=== PATIENT | male | born 1965 | race Caucasian/White ===

== ENCOUNTER 2018-10-17 16:01 | Inpatient (IN) | payer OTHER ==
[2018-10-17 22:10] VITALS: BMI 34.7
--- NOTE | 2018-10-18 00:43 | HP ---
COWS - Scale Resting Pulse: 1= [place] 81-100 Sweatin=Flushed/Facial Moisture Restless Observation: 1= Difficult to Sit Still Pupil Size: 1= Pupils >than Normal Bone or Joint Aches: 4=Acute Joint/Muscle Pain Runny Nose/ Eye Tearin= Nasal Congestion GI Upset > 30mins: 1= Stomach Cramp Tremor Observation: 2= Slight Tremor Visible Yawning Observation: 0= None Anxiety or Irritability: 2=Irritable/Anxious Goose Flesh Skin: 0=Smooth Skin COWS Score: 15 CIWA Score - Admission Criteria OASAS Guidelines: Admission for Medically Managed Detox: Requires at least one of the followin. CIWA greater than 12 2. Seizures within the past 24 hours 3. Delirium tremens within the past 24 hours 4. Hallucinations within the past 24 hours 5. Acute intervention needed for co occurring medical disorder 6. Acute intervention needed for co occurring psychiatric disorder 7. Severe withdrawal that cannot be handled at a lower level of care (continued vomiting, continued diarrhea, abnormal vital signs) requiring intravenous medication and/or fluids 8. Admission ROS [facility] - [facility] Chief Complaint: +Heroin withdrawal symptoms Allergies/Adverse Reactions: Allergies Allergy/AdvReac Type Severity Reaction Status Date / Time No Known Allergies Allergy Verified 10/17/18 23:47 History of Present Illness: 53 years old male with about 25 years of heroin dependence is seeking admission to detox. Patient was in detox at [facility] in 1992 and reports 10 years of sobriety. He has medical history of asthma, DM Type 1 and hypertension. He denies suicide attempt and suicidal ideation at this time. Exam Limitations: No Limitations - Ebola screening Have you traveled outside of the country in the last 21 days: No Have you had contact with anyone from an Ebola affected area: No Have you been sick,other than usual withdrawal symptoms: No Do you have a fever: No - Review of Systems Constitutional: Chills, Night Sweats, Changes in sleep EENT: reports: No Symptoms Reported Respiratory: reports: No Symptoms reported Cardiac: reports: No Symptoms Reported GI: reports: Poor Appetite, Poor Fluid Intake, Vomiting, Abdominal cramping : reports: No Symptoms Reported Musculoskeletal: reports: Back Pain, Joint Pain Integumentary: reports: Dryness Neuro: reports: Headache, Tremors Endocrine: reports: No Symptoms Reported Hematology: reports: No Symptoms Reported Psychiatric: reports: Agitated, Depressed Other Systems: Reviewed and Negative Patient History - Patient Medical History Hx Anemia: No Hx Asthma: No Hx Chronic Obstructive Pulmonary Disease (COPD): No Hx Cancer: No Hx Cardiac Disorders: No Hx Congestive Heart Failure: No Hx Hypertension: Yes (Not on medication ) Hx Hypercholesterolemia: No Hx Pacemaker: No HX Cerebrovascular Accident: No Hx Seizures: No Hx Dementia: No Hx Diabetes: Yes (In sulin ) Hx Gastrointestinal Disorders: No Hx Liver Disease: No Hx Genitourinary Disorders: No Hx Sexually Transmitted Disorders: No Hx Renal Disease (ESRD): No Hx Human Immunodeficiency Virus (HIV): No (Negative 2018) Hx Hepatitis C: No Hx Depression: No ( ) Hx Suicide Attempt: No (Denies suic idal ideation at this time) Hx Bipolar Disorder: No Hx Schizophrenia: No - Patient Surgical History Past Surgical History: No Hx Neurologic Surgery: No Hx Cataract Extraction: No Hx Cardiac Surgery: No Hx Lung Surgery: No Hx Breast Surgery: No Hx Breast Biopsy: No Hx Abdominal Surgery: No Hx Appendectomy: No Hx Cholecystectomy: No Hx Genitourinary Surgery: No Hx Section: No Hx Orthopedic Surgery: No Anesthesia Reaction: No - PPD History Previous Implant?: Yes Documented Results: Negative w/o proof Implanted On Prior R Admission?: No PPD to be Administered?: Yes - Reproductive History Patient is a Female of Child Bearing Age (11 -55 yrs old): No (MALE) - Smoking Cessation Smoking history: Current every day smoker Have you smoked in the past 12 months: Yes Aproximately how many cigarettes per day: 5 Hx Chewing Tobacco Use: No Initiated information on smoking cessation: Yes 'Breaking Loose' booklet given: 10/18/18 - Substance & Tx. History Hx Alcohol Use: No Hx Substance Use: Yes Substance Use Type: Heroin Hx Substance Use Treatment: No - Substances Abused Heroin Route: Inhalation Frequency: Daily Amount used: 20 BAGS Age of first use: 22 Date of Last Use: 10/17/18 Family Disease History - Family Disease History Family History: Denies Admission Physical Exam BHS - Vital Signs Vital Signs: Vital Signs - 24 hr 10/17/18 22:09 Temperature 97.7 F Pulse Rate 90 Respiratory 18 Rate Blood Pressure 150/93 - Physical General Appearance: Yes: Moderate Distress, Tremorous, Sweating, Anxious HEENTM: Yes: EOMI, Normal ENT Inspection, Normal Voice, ZOE Respiratory: Yes: Lungs Clear, Normal Breath Sounds, No Respiratory Distress Neck: Yes: Supple Breast: Yes: Breast Exam Deferred Cardiology: Yes: Regular Rhythm, Regular Rate, Tachycardia Abdominal: Yes: Normal Bowel Sounds Genitourinary: Yes: Within Normal Limits Back: Yes: Normal Inspection Musculoskeletal: Yes: Back pain, Muscle Pain Extremities: Yes: Tremors 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, Alert, Normal Mood/Affect Integumentary: Yes: Warm Lymphatic: Yes: Within Normal Limits - Diagnostic (1) DM type 1 (diabetes mellitus, type 1) Current Visit: Yes Status: Chronic Qualifiers: Diabetes mellitus complication status: without complication Qualified Code( s): E10.9 - Type 1 diabetes mellitus without complications (2) Hypertension Current Visit: Yes Status: Acute (3) Nicotine dependence Current Visit: Yes Status: Acute (4) Opioid dependence with withdrawal Current Visit: Yes Status: Acute (5) Asthma attack Current Visit: Yes Status: Acute Qualifiers: Asthma severity: mild Asthma persistence: unspecified Qualified Code(s): J45.901 - Unspecified asthma with (acute) exacerbation Cleared for Admission [facility] - Detox or Rehab [facility] Level of Care: Medically Managed Detox Regimen/Protocol: Methadone [facility] Breath Alcohol Content Breath Alcohol Content: 0 Urine Drug Screen - Results Drug Screen Negative: No Urine Drug Screen Results: OPI-Opiates, MTD-Methadone, OXY-Oxycodone
[2018-10-18] MEDS ORDERED: guaiFENesin/D-METHORPHAN HB 10 ML UNIT-DOSE CUPS PO PRN (00:50)
[2018-10-18] MEDS ORDERED: NICOTINE POLACRILEX 4 MG GUM BC PRN (00:50)
[2018-10-18] MEDS ORDERED: LOPERAMIDE HCL 2 MG CAPSULE PO PRN (00:50)
[2018-10-18] MEDS ORDERED: MAGNESIUM CITRATE 300 ML BOTTLE PO PRN (00:50)
[2018-10-18] MEDS ORDERED: MAG HYDROX/AL HYDROX/SIMETH 30 ML UNIT-DOSE CUP PO PRN (00:50)
[2018-10-18] MEDS ORDERED: NICOTINE POLACRILEX 2 MG GUM BC PRN (00:50)
[2018-10-18] MEDS ORDERED: METHADONE HCL 10 MG TABLET (FOR DETOX USE ONLY) PO ONE ×3 (00:50→23:00)
[2018-10-18] MEDS ORDERED: MAGNESIUM HYDROX 2400MG/30ML ORAL SUSPENSION 30 ML CUP PO PRN (00:50)
[2018-10-18] MEDS ORDERED: MENTHOL/PHENOL 1 EACH UD MM PRN (00:50)
[2018-10-18] MEDS ORDERED: IBUPROFEN 400 MG TABLET (FP) PO PRN (00:50)
[2018-10-18] MEDS ORDERED: ACETAMINOPHEN 325 MG TABLET (FP) PO PRN (00:50)
[2018-10-18] MEDS ORDERED: P-EPHED 60MG/TRIPROLIDI 2.5MG TABLET PO PRN (00:50)
[2018-10-18] MEDS: diazePAM 5 MG TABLET PO PRN ×2 (01:51→22:12)
[2018-10-18] MEDS: INSULIN SLIDING SCALE (NOVOLOG) 1 VIAL SQ SCH ×5 (06:07→23:41)
[2018-10-18] MEDS ORDERED: ALBUTEROL SO4 8 GM HFA INHALER IH PRN (10:00)
--- NOTE | 2018-10-18 10:00 | PN ---
[facility] Progress Note Note: PATIENT ADMITTED EARLY THIS MORNING FOR HEROIN WITHDRAWAL SYMPTOMS. PATIENT C/O CHILLS, ANXIETY, SLEEP DISTURBANCE AND IRRITABILITY. Vital Signs Temperature 96.6 F L 10/18/18 09:21 Pulse Rate 74 10/18/18 09:21 Respiratory Rate 17 10/18/18 09:21 Blood Pressure 121/63 10/18/18 09:21 O2 Sat by Pulse Oximetry (%) Laboratory Tests 10/18/18 06:29 POC Glucometer 209 PE: ALERT AND ORIENTED X 3 COVERED FACE WITH BLANKET DURING EXAM STATING "I WANT TO SLEEP" EXT FULL ROM, NO VISIBLE EDEMA ANXIOUS AND IRRITABLE EXAM LIMITED DUE TO IRRITABILITY A/P WITHDRAWAL SX CONTINUE DETOX ENCOURAGE ORAL FLUIDS CONTINUE TO MONITOR
[2018-10-18] MEDS: PRENATAL VITAMINS W/ FOLIC ACID TABLET (FP) PO SCH (10:43)
[2018-10-18] MEDS: NICOTINE 14 MG/24 HOURS TOPICAL PATCH TD SCH (10:44)
[2018-10-18] MEDS: BUDESONIDE/FORMETEROL FUMARATE 80/4.5 mcg INHALER IH SCH ×2 (10:44→23:41)
[2018-10-18 15:25] LABS: URINE APPEARANCE CLEAR; URINE BILIRUBIN NEGATIVE (<2.0 mg/dL); URINE COLOR STRAW; URINE GLUCOSE (UA) 1+ (NEGATIVE); URINE KETONE NEGATIVE (NEGATIVE); URINE LEUK ESTERASE NEGATIVE (NEGATIVE); URINE NITRITE NEGATIVE (NEGATIVE); URINE PROTEIN NEGATIVE (NEGATIVE); URINE UROBILINOGEN NEGATIVE mg/dL (0.2-1.0)
[2018-10-18] MEDS ORDERED: MELATONIN 5 MG TABLETS PO PRN (22:00)
[2018-10-18] MEDS: THIAMINE HCL 100 MG TABLET (FP) PO SCH (22:12)
[2018-10-19] MEDS ORDERED: ONDANSETRON *ODT* 4 MG TABLET SL ONE (02:37)
[2018-10-19] MEDS: INSULIN SLIDING SCALE (NOVOLOG) 1 VIAL SQ SCH ×4 (08:07→23:12)
[2018-10-19] MEDS ORDERED: METHADONE HCL 10 MG TABLET (FOR DETOX USE ONLY) PO ONE (10:00)
[2018-10-19 10:22] LABS: HEMATOCRIT 40.3 % (35.4-49); HEMOGLOBIN 13.1 GM/dL (11.7-16.9); MCH 31.9 pg (25.7-33.7); MCHC 32.5 g/dl (32.0-35.9); MEAN PLT VOLUME 10.4 fl (7.5-11.1); PLATELET COUNT 106 K/MM3 (134-434); RBC 4.11 M/mm3 (4.00-5.60); WHITE BLOOD COUNT 9.7 K/mm3 (4.0-10.0)
[2018-10-19] MEDS ORDERED: TRIMETHOBENZAMIDE HCL 200MG/2ML INJ IM PRN (10:24)
[2018-10-19] MEDS: BUDESONIDE/FORMETEROL FUMARATE 80/4.5 mcg INHALER IH SCH ×2 (11:46→23:11)
[2018-10-19] MEDS: cloNIDine HCL 0.1 MG TABLET PO PRN ×2 (11:46→19:16)
[2018-10-19] MEDS: NICOTINE 14 MG/24 HOURS TOPICAL PATCH TD SCH (11:46)
[2018-10-19] MEDS: PRENATAL VITAMINS W/ FOLIC ACID TABLET (FP) PO SCH (11:46)
[2018-10-19] MEDS: amLODIPine BESYLATE 5 MG TABLET (FP) PO SCH (11:46)
[2018-10-19 12:02] LABS: ALBUMIN 3.7 g/dl (3.4-5.0); ALK PHOS 110 U/L (45-117); ANION GAP 12 MMOL/L (8-16); BILIRUBIN,TOTAL 0.4 mg/dL (0.2-1); BLOOD UREA NITROGEN 15 mg/dL (7-18); CALCIUM 9.5 mg/dL (8.5-10.1); CHLORIDE 102 mmol/L (98-107); CO2 26 mmol/L (21-32); CREATININE 0.9 mg/dL (0.55-1.3); POTASSIUM 3.8 mmol/L (3.5-5.1); SGOT/AST 21 U/L (15-37); SGPT/ALT 45 U/L (13-61); SODIUM 140 mmol/L (136-145); TOT PROT 7.6 g/dl (6.4-8.2)
[2018-10-19 12:15] LABS: GLUCOSE,RANDOM 322 mg/dL (74-106)
--- NOTE | 2018-10-19 12:41 | PN ---
[facility] COWS - Scale Resting Pulse: 0= [place] 80 or Below Sweatin= Chills/Flushing Restless Observation: 3= Extraneous Movement Pupil Size: 0= Normal to Room Light Bone or Joint Aches: 2= Severe Diffuse Aches Runny Nose/ Eye Tearin= Runny Nose/Eyes GI Upset > 30mins: 3= Vomiting/Diarrhea Tremor Observation of Outstretched Hands: 2= Slight Tremor Visible Yawning Observation: 1= 1-2x During Session Anxiety or Irritability: 2=Irritable/Anxious Goose Flesh Skin: 0=Smooth Skin COWS Score: 16 BHS Progress Note (SOAP) Subjective: Vomited x 3, diarrhea, sweating, tremor, stomach ache, interrupted sleep. Patient reports h/o HTN (not on medication). Objective: 10/19/18 12:36 Last Vital Signs Temp Pulse Resp BP Pulse Ox 97.4 F L 80 18 180/91 H 10/19/18 09:30 10/19/18 09:30 10/19/18 09:30 10/19/18 09:30 Elevated b/p (h/o htn) Laboratory Tests 10/18/18 10/18/18 10/18/18 06:29 11:45 11:46 WBC RBC Hgb Hct MCV MCH MCHC RDW Plt Count MPV Sodium Potassium Chloride Carbon Dioxide Anion Gap BUN Creatinine Creat Clearance w eGFR POC Glucometer 209 289 Random Glucose Calcium Total Bilirubin AST ALT Alkaline Phosphatase Total Protein Albumin Urine Color Straw Urine Appearance Clear Urine pH 7.0 Ur Specific [place] 1.008 L Urine Protein Negative Urine Glucose (UA) 1+ H Urine Ketones Negative Urine Blood Negative Urine Nitrite Negative Urine Bilirubin Negative Urine Urobilinogen Negative Ur Leukocyte Esterase Negative 10/18/18 10/19/18 10/19/18 16:25 07:00 07:00 WBC 9.7 RBC 4.11 Hgb 13.1 Hct 40.3 MCV 98.0 H MCH 31.9 MCHC 32.5 RDW 15.0 Plt Count 106 L MPV 10.4 Sodium 140 Potassium 3.8 Chloride 102 Carbon Dioxide 26 Anion Gap 12 BUN 15 Creatinine 0.9 Creat Clearance w eGFR > 60 POC Glucometer 181 Random Glucose 322 H* Calcium 9.5 Total Bilirubin 0.4 AST 21 ALT 45 Alkaline Phosphatase 110 Total Protein 7.6 Albumin 3.7 Urine Color Urine Appearance Urine pH Ur Specific [place] Urine Protein Urine Glucose (UA) Urine Ketones Urine Blood Urine Nitrite Urine Bilirubin Urine Urobilinogen Ur Leukocyte Esterase 10/19/18 11:44 WBC RBC Hgb Hct MCV MCH MCHC RDW Plt Count MPV Sodium Potassium Chloride Carbon Dioxide Anion Gap BUN Creatinine Creat Clearance w eGFR POC Glucometer 358 Random Glucose Calcium Total Bilirubin AST ALT Alkaline Phosphatase Total Protein Albumin Urine Color Urine Appearance Urine pH Ur Specific [place] Urine Protein Urine Glucose (UA) Urine Ketones Urine Blood Urine Nitrite Urine Bilirubin Urine Urobilinogen Ur Leukocyte Esterase Labs reviewed: increase glucose noted, UA 1+ glucose Assessment: 10/19/18 12:37 Withdrawal symptoms Noted with hyperglycemia and glycosuria H/O HTN Plan: Continue detox Hyperglycemia and glycosuria: secondary to DM; encouraged PO water intake, continue diabetic regimen. Follow up with PCP post discharge for management. HTN, uncontrolled: start norvasc 5mg PO daily, clonidine 0.1mg PO q8hr prn if b/ p >140/90, consider increasing norvasc to 10mg daily if warranted.
[2018-10-19] MEDS: diazePAM 5 MG TABLET PO PRN ×2 (17:59→23:11)
[2018-10-19] MEDS: INSULIN (LEVEMIR) 100 UNITS/ML UNITS SQ SCH (23:04)
[2018-10-19] MEDS: THIAMINE HCL 100 MG TABLET (FP) PO SCH (23:11)
[2018-10-20] MEDS: INSULIN SLIDING SCALE (NOVOLOG) 1 VIAL SQ SCH ×4 (06:17→22:43)
[2018-10-20] MEDS ORDERED: INSULIN SLIDING SCALE (NOVOLOG) 1 VIAL SQ ONE (06:19)
--- NOTE | 2018-10-20 09:39 | PN ---
[facility] COWS - Scale Resting Pulse: 1= [place] 81-100 Sweatin= Chills/Flushing Restless Observation: 1= Difficult to Sit Still Pupil Size: 1= Pupils >than Normal Bone or Joint Aches: 2= Severe Diffuse Aches Runny Nose/ Eye Tearin= Nasal Congestion GI Upset > 30mins: 1= Stomach Cramp Tremor Observation of Outstretched Hands: 1= Tremor [place], Not Seen Yawning Observation: 1= 1-2x During Session Anxiety or Irritability: 2=Irritable/Anxious Goose Flesh Skin: 0=Smooth Skin COWS Score: 12 S Progress Note (SOAP) Subjective: overweight hypertension diabetes copd reported non adherence with medication x 3-4 days body aches joints pain back ache tremor sweat Objective: 10/20/18 10:04 Vital Signs Temperature 97.4 F L 10/20/18 09:25 Pulse Rate 88 10/20/18 09:25 Respiratory Rate 18 10/20/18 09:25 Blood Pressure 179/90 H 10/20/18 09:25 O2 Sat by Pulse Oximetry (%) Laboratory Last Values WBC 9.7 K/mm3 (4.0-10.0) 10/19/18 07:00 RBC 4.11 M/mm3 (4.00-5.60) 10/19/18 07:00 Hgb 13.1 GM/dL (11.7-16.9) 10/19/18 07:00 Hct 40.3 % (35.4-49) 10/19/18 07:00 MCV 98.0 fl (80-96) H 10/19/18 07:00 MCH 31.9 pg (25.7-33.7) 10/19/18 07:00 MCHC 32.5 g/dl (32.0-35.9) 10/19/18 07:00 RDW 15.0 % (11.9-15.9) 10/19/18 07:00 Plt Count 106 K/MM3 (134-434) L 10/19/18 07:00 MPV 10.4 fl (7.5-11.1) 10/19/18 07:00 Sodium 140 mmol/L (136-145) 10/19/18 07:00 Potassium 3.8 mmol/L (3.5-5.1) 10/19/18 07:00 Chloride 102 mmol/L (98-107) 10/19/18 07:00 Carbon Dioxide 26 mmol/L (21-32) 10/19/18 07:00 Anion Gap 12 MMOL/L (8-16) 10/19/18 07:00 BUN 15 mg/dL (7-18) 10/19/18 07:00 Creatinine 0.9 mg/dL (0.55-1.3) 10/19/18 07:00 Creat Clearance w eGFR > 60 (>60) 10/19/18 07:00 POC Glucometer 275 UNITS (80-120) 10/19/18 16:19 Random Glucose 322 mg/dL (74-106) H* 10/19/18 07:00 Calcium 9.5 mg/dL (8.5-10.1) 10/19/18 07:00 Total Bilirubin 0.4 mg/dL (0.2-1) 10/19/18 07:00 AST 21 U/L (15-37) 10/19/18 07:00 ALT 45 U/L (13-61) 10/19/18 07:00 Alkaline Phosphatase 110 U/L (45-117) 10/19/18 07:00 Total Protein 7.6 g/dl (6.4-8.2) 10/19/18 07:00 Albumin 3.7 g/dl (3.4-5.0) 10/19/18 07:00 Urine Color Straw 10/18/18 11:45 Urine Appearance Clear 10/18/18 11:45 Urine pH 7.0 (5.0-8.0) 10/18/18 11:45 Ur Specific [place] 1.008 (1.010-1.035) L 10/18/18 11:45 Urine Protein Negative (NEGATIVE) 10/18/18 11:45 Urine Glucose (UA) 1+ (NEGATIVE) H 10/18/18 11:45 Urine Ketones Negative (NEGATIVE) 10/18/18 11:45 Urine Blood Negative (NEGATIVE) 10/18/18 11:45 Urine Nitrite Negative (NEGATIVE) 10/18/18 11:45 Urine Bilirubin Negative (<2.0 mg/dL) 10/18/18 11:45 Urine Urobilinogen Negative mg/dL (0.2-1.0) 10/18/18 11:45 Ur Leukocyte Esterase Negative (NEGATIVE) 10/18/18 11:45 lab noted discontinue motrim Assessment: 10/20/18 10:05 withdrawal sx encourage weight loss Plan: continue detox encourage weight loss
[2018-10-20] MEDS ORDERED: METHADONE HCL 5 MG TABLET (FOR DETOX USE ONLY) PO ONE (10:00)
[2018-10-20] MEDS ORDERED: amLODIPine BESYLATE 5 MG TABLET (FP) PO ONE (10:24)
[2018-10-20] MEDS ORDERED: LISINOPRIL 20 MG TABLET (FP) PO SCH (10:30)
[2018-10-20] MEDS: diazePAM 5 MG TABLET PO PRN ×3 (10:33→22:50)
[2018-10-20] MEDS: BUDESONIDE/FORMETEROL FUMARATE 80/4.5 mcg INHALER IH SCH ×2 (10:34→22:51)
[2018-10-20] MEDS: PRENATAL VITAMINS W/ FOLIC ACID TABLET (FP) PO SCH (10:34)
[2018-10-20] MEDS: NICOTINE 14 MG/24 HOURS TOPICAL PATCH TD SCH (10:36)
[2018-10-20] MEDS: amLODIPine BESYLATE 5 MG TABLET (FP) PO SCH (10:37)
[2018-10-20] MEDS: LISINOPRIL 20 MG TABLET (FP) PO SCH (10:38)
[2018-10-20] MEDS: cloNIDine HCL 0.1 MG TABLET PO PRN (17:46)
[2018-10-20] MEDS: INSULIN (LEVEMIR) 100 UNITS/ML UNITS SQ SCH (22:43)
[2018-10-20] MEDS: THIAMINE HCL 100 MG TABLET (FP) PO SCH (22:51)
[2018-10-21] MEDS ORDERED: INSULIN SLIDING SCALE (NOVOLOG) 1 VIAL SQ ONE ×2 (05:58→06:02)
[2018-10-21] MEDS: INSULIN SLIDING SCALE (NOVOLOG) 1 VIAL SQ SCH ×4 (06:02→22:02)
[2018-10-21] MEDS: cloNIDine HCL 0.1 MG TABLET PO PRN ×2 (06:08→22:10)
[2018-10-21] MEDS ORDERED: AMMONIUM LACTATE 12% LOTION 225 GM BOTTLE TP PRN (09:16)
[2018-10-21] MEDS ORDERED: METHADONE HCL 5 MG TABLET (FOR DETOX USE ONLY) PO ONE (10:00)
[2018-10-21] MEDS: amLODIPine BESYLATE 5 MG TABLET (FP) PO SCH (10:34)
[2018-10-21] MEDS: PRENATAL VITAMINS W/ FOLIC ACID TABLET (FP) PO SCH (10:34)
[2018-10-21] MEDS: LISINOPRIL 20 MG TABLET (FP) PO SCH (10:34)
[2018-10-21] MEDS: NICOTINE 14 MG/24 HOURS TOPICAL PATCH TD SCH (10:34)
[2018-10-21] MEDS: BUDESONIDE/FORMETEROL FUMARATE 80/4.5 mcg INHALER IH SCH ×2 (10:58→22:10)
--- NOTE | 2018-10-21 11:17 | PN ---
[facility] Progress Note Note: PATIENT CONTINUES WITH DETOX REGIMEN. C/O INTERRUPTED SLEEP. MILDLY IRRITABLE. Laboratory Tests 10/18/18 10/18/18 10/18/18 06:29 11:45 11:46 WBC RBC Hgb Hct MCV MCH MCHC RDW Plt Count MPV Sodium Potassium Chloride Carbon Dioxide Anion Gap BUN Creatinine Creat Clearance w eGFR POC Glucometer 209 289 Random Glucose Calcium Total Bilirubin AST ALT Alkaline Phosphatase Total Protein Albumin Urine Color Straw Urine Appearance Clear Urine pH 7.0 Ur Specific [place] 1.008 L Urine Protein Negative Urine Glucose (UA) 1+ H Urine Ketones Negative Urine Blood Negative Urine Nitrite Negative Urine Bilirubin Negative Urine Urobilinogen Negative Ur Leukocyte Esterase Negative RPR Titer 10/18/18 10/19/18 10/19/18 16:25 07:00 07:00 WBC 9.7 RBC 4.11 Hgb 13.1 Hct 40.3 MCV 98.0 H MCH 31.9 MCHC 32.5 RDW 15.0 Plt Count 106 L MPV 10.4 Sodium 140 Potassium 3.8 Chloride 102 Carbon Dioxide 26 Anion Gap 12 BUN 15 Creatinine 0.9 Creat Clearance w eGFR > 60 POC Glucometer 181 Random Glucose 322 H* Calcium 9.5 Total Bilirubin 0.4 AST 21 ALT 45 Alkaline Phosphatase 110 Total Protein 7.6 Albumin 3.7 Urine Color Urine Appearance Urine pH Ur Specific [place] Urine Protein Urine Glucose (UA) Urine Ketones Urine Blood Urine Nitrite Urine Bilirubin Urine Urobilinogen Ur Leukocyte Esterase RPR Titer 10/19/18 10/19/18 10/19/18 07:00 11:44 16:19 WBC RBC Hgb Hct MCV MCH MCHC RDW Plt Count MPV Sodium Potassium Chloride Carbon Dioxide Anion Gap BUN Creatinine Creat Clearance w eGFR POC Glucometer 358 275 Random Glucose Calcium Total Bilirubin AST ALT Alkaline Phosphatase Total Protein Albumin Urine Color Urine Appearance Urine pH Ur Specific [place] Urine Protein Urine Glucose (UA) Urine Ketones Urine Blood Urine Nitrite Urine Bilirubin Urine Urobilinogen Ur Leukocyte Esterase RPR Titer Nonreactive 10/20/18 10/21/18 11:12 05:31 WBC RBC Hgb Hct MCV MCH MCHC RDW Plt Count MPV Sodium Potassium Chloride Carbon Dioxide Anion Gap BUN Creatinine Creat Clearance w eGFR POC Glucometer 329 249 Random Glucose Calcium Total Bilirubin AST ALT Alkaline Phosphatase Total Protein Albumin Urine Color Urine Appearance Urine pH Ur Specific [place] Urine Protein Urine Glucose (UA) Urine Ketones Urine Blood Urine Nitrite Urine Bilirubin Urine Urobilinogen Ur Leukocyte Esterase RPR Titer PE: SKIN WARM AND DRY CAR S1S2 RESP MINIMAL FAINT WHEEZE POSTERIOR UPPER LOBES EXT FULL ROM, NO EDEMA, FEET DRY AND CRACKED SKIN ALERT AND ORIENTED X 3 A/P: WITHDRAWAL SX CONTINUE DETOX ADD AMMONIA LACTATE LOTION ENCOURAGE FLUIDS CONTINUE TO MONITOR
[2018-10-21] MEDS: THIAMINE HCL 100 MG TABLET (FP) PO SCH (22:10)
[2018-10-21] MEDS: INSULIN (LEVEMIR) 100 UNITS/ML UNITS SQ SCH (22:10)
[2018-10-22] MEDS: INSULIN SLIDING SCALE (NOVOLOG) 1 VIAL SQ SCH ×4 (07:21→22:30)
[2018-10-22] MEDS: PRENATAL VITAMINS W/ FOLIC ACID TABLET (FP) PO SCH (09:41)
[2018-10-22] MEDS: NICOTINE 14 MG/24 HOURS TOPICAL PATCH TD SCH (09:41)
[2018-10-22] MEDS: LISINOPRIL 20 MG TABLET (FP) PO SCH (09:41)
[2018-10-22] MEDS: BUDESONIDE/FORMETEROL FUMARATE 80/4.5 mcg INHALER IH SCH ×2 (09:41→22:29)
[2018-10-22] MEDS: amLODIPine BESYLATE 5 MG TABLET (FP) PO SCH (09:41)
[2018-10-22] MEDS ORDERED: METHADONE HCL 10 MG TABLET (FOR DETOX USE ONLY) PO ONE (10:00)
[2018-10-22] MEDS ORDERED: INSULIN SLIDING SCALE (NOVOLOG) 1 VIAL SQ ONE ×2 (11:35→17:01)
--- NOTE | 2018-10-22 12:56 | PN ---
[facility] Progress Note (SOAP) Subjective: denies any complaint Says " i am ok" Objective: 10/22/18 12:53 In bed sleepy, arousable to verbal stimuli Vital Signs Temperature 99.4 F 10/21/18 21:39 Pulse Rate 91 H 10/21/18 21:39 Respiratory Rate 18 10/22/18 06:08 Blood Pressure 154/92 10/21/18 21:39 O2 Sat by Pulse Oximetry (%) refused VS this a.m Assessment: 10/22/18 12:54 withdrawal sx Plan: continue detox For d/c in a.m
[2018-10-22] MEDS: cloNIDine HCL 0.1 MG TABLET PO PRN (22:26)
[2018-10-22] MEDS: THIAMINE HCL 100 MG TABLET (FP) PO SCH (22:26)
[2018-10-22] MEDS: INSULIN (LEVEMIR) 100 UNITS/ML UNITS SQ SCH (22:31)
[2018-10-23] MEDS ORDERED: METHADONE HCL 5 MG TABLET (FOR DETOX USE ONLY) PO ONE (06:00)
[2018-10-23 06:17] VITALS: BP 141/76; PULSE 70; TEMP 97.7
[2018-10-23] MEDS: INSULIN SLIDING SCALE (NOVOLOG) 1 VIAL SQ SCH (06:58)
--- NOTE | 2018-10-23 11:45 | DS ---
[facility] Discharge Summary Admission Date: 10/17/18 Discharge Date: 10/23/18 - History Present History: Opioid Dependence Additional Comments: Patient completed detox. Detox stay uneventful. Patient aware to follow up with his PCP within 1 week after discharge. Pertinent Past History: Asthma HTN DMT1 with hyperglycemia Nicotine dependence Opioid dependence - Physical Exam Results Vital Signs: Vital Signs Temperature 97.7 F 10/23/18 06:16 Pulse Rate 70 10/23/18 06:16 Respiratory Rate 20 10/23/18 06:16 Blood Pressure 141/76 10/23/18 06:16 O2 Sat by Pulse Oximetry (%) Pertinent Admission Physical Exam Findings: Withdrawal symptoms Laboratory Tests 10/18/18 10/18/18 10/18/18 06:29 11:45 11:46 WBC RBC Hgb Hct MCV MCH MCHC RDW Plt Count MPV Sodium Potassium Chloride Carbon Dioxide Anion Gap BUN Creatinine Creat Clearance w eGFR POC Glucometer 209 289 Random Glucose Calcium Total Bilirubin AST ALT Alkaline Phosphatase Total Protein Albumin Urine Color Straw Urine Appearance Clear Urine pH 7.0 Ur Specific [place] 1.008 L Urine Protein Negative Urine Glucose (UA) 1+ H Urine Ketones Negative Urine Blood Negative Urine Nitrite Negative Urine Bilirubin Negative Urine Urobilinogen Negative Ur Leukocyte Esterase Negative RPR Titer 10/18/18 10/19/18 10/19/18 16:25 07:00 07:00 WBC 9.7 RBC 4.11 Hgb 13.1 Hct 40.3 MCV 98.0 H MCH 31.9 MCHC 32.5 RDW 15.0 Plt Count 106 L MPV 10.4 Sodium 140 Potassium 3.8 Chloride 102 Carbon Dioxide 26 Anion Gap 12 BUN 15 Creatinine 0.9 Creat Clearance w eGFR > 60 POC Glucometer 181 Random Glucose 322 H* Calcium 9.5 Total Bilirubin 0.4 AST 21 ALT 45 Alkaline Phosphatase 110 Total Protein 7.6 Albumin 3.7 Urine Color Urine Appearance Urine pH Ur Specific [place] Urine Protein Urine Glucose (UA) Urine Ketones Urine Blood Urine Nitrite Urine Bilirubin Urine Urobilinogen Ur Leukocyte Esterase RPR Titer 10/19/18 10/19/18 10/19/18 07:00 11:44 16:19 WBC RBC Hgb Hct MCV MCH MCHC RDW Plt Count MPV Sodium Potassium Chloride Carbon Dioxide Anion Gap BUN Creatinine Creat Clearance w eGFR POC Glucometer 358 275 Random Glucose Calcium Total Bilirubin AST ALT Alkaline Phosphatase Total Protein Albumin Urine Color Urine Appearance Urine pH Ur Specific [place] Urine Protein Urine Glucose (UA) Urine Ketones Urine Blood Urine Nitrite Urine Bilirubin Urine Urobilinogen Ur Leukocyte Esterase RPR Titer Nonreactive 10/20/18 10/21/18 10/22/18 11:12 05:31 16:25 WBC RBC Hgb Hct MCV MCH MCHC RDW Plt Count MPV Sodium Potassium Chloride Carbon Dioxide Anion Gap BUN Creatinine Creat Clearance w eGFR POC Glucometer 329 249 305 Random Glucose Calcium Total Bilirubin AST ALT Alkaline Phosphatase Total Protein Albumin Urine Color Urine Appearance Urine pH Ur Specific [place] Urine Protein Urine Glucose (UA) Urine Ketones Urine Blood Urine Nitrite Urine Bilirubin Urine Urobilinogen Ur Leukocyte Esterase RPR Titer 10/22/18 10/23/18 20:53 05:24 WBC RBC Hgb Hct MCV MCH MCHC RDW Plt Count MPV Sodium Potassium Chloride Carbon Dioxide Anion Gap BUN Creatinine Creat Clearance w eGFR POC Glucometer 250 239 Random Glucose Calcium Total Bilirubin AST ALT Alkaline Phosphatase Total Protein Albumin Urine Color Urine Appearance Urine pH Ur Specific [place] Urine Protein Urine Glucose (UA) Urine Ketones Urine Blood Urine Nitrite Urine Bilirubin Urine Urobilinogen Ur Leukocyte Esterase RPR Titer Labs reviewed: glycosuria and hyperglycemia r/t dm, patient instructed to follow up with his PCP for management - Treatment Hospital Course: Detox Protocol Followed, Detoxed Safely, Responded well, Discharged Condition Good - Medication Discharge Medications: Ambulatory Orders Albuterol Sulfate [Proair Hfa] 8.5 gm IH DAILY 10/17/18 Fluticasone/Salmeterol [Advair 250-50 Diskus] 1 each IH BID 10/17/18 Insulin Glargine,Hum.rec.anlog [Annaaglearl Phillip U-100] unit SQ BID 10/17/18 Amlodipine Besylate [Norvasc -] 10 mg PO DAILY 10/20/18 Lisinopril [Prinivil] 20 mg PO 10/20/18 - Diagnosis (1) Hypertension Status: Chronic Qualifiers: Hypertension type: essential hypertension Qualified Code(s): I10 - Essential (primary) hypertension (2) Nicotine dependence Status: Chronic (3) Opioid dependence with withdrawal Status: Acute (4) Type 1 diabetes mellitus with hyperglycemia Status: Chronic (5) Asthma Status: Chronic Qualifiers: Asthma persistence: intermittent (6) Glycosuria Status: Acute - AMA Did Patient Leave Against Medical Advice: No (F/U with PCP within 1 week)
== END 2018-10-23 09:00 | disposition home or self-care (01) | DRG 773 ==
LOC: YASAS 16:01 → Y3N 23:52
PROVIDERS: ADMIT Neuromusculoskeletal Medicine & OMM; ATTEND Neuromusculoskeletal Medicine & OMM
PROC: HZ2ZZZZ Detoxification Services for Substance Abuse Treatment (ICD-10-PCS; principal; 2018-10-17)
DX: F11.23 Opioid dependence with withdrawal (principal); F17.210 Nicotine dependence, cigarettes, uncomplicated; I10 Essential (primary) hypertension; E10.65 Type 1 diabetes mellitus with hyperglycemia; J45.901 Unspecified asthma with (acute) exacerbation; R81 Glycosuria; R00.0 Tachycardia, unspecified; Z79.4 Long term (current) use of insulin
CPT/HCPCS: 36415; 80053; 81003; 82962; 85027; 86593; J0735; Q0162